=== PATIENT | female | born 1965 | race Two or more races ===

== ENCOUNTER 2022-11-23 19:02 | Emergency (ER) | payer OTHER ==
[~2022-11-23] VITALS: Ht 147.3 cm; Wt 58.1 kg
--- NOTE | 2022-11-23 19:40 | NUR ---
BIBFAMILY C/O FLANK PAIN P/S 9/10 SINCE 11/10/22.PATIENT IS AAOX4. ABLE TO MAKE NEEDS KNOWN. PAIN SCALE IS 9/10. PLACED COMFORTABLY IN BED. VITALS CHECKED.
--- NOTE | 2022-11-23 19:42 | NUR ---
URINE SPECIMEN SENT TO LAB
[2022-11-23] MEDS ORDERED: KETOROLAC TROMETHAMINE 15 MG/ML VIAL ONE (19:57)
[2022-11-23] MEDS ORDERED: ONDANSETRON HCL/PF 4 MG/2 ML VIAL ONE (19:57)
--- NOTE | 2022-11-23 20:02 | NUR ---
PT BROUGHT TO RADIOLOGY DEPT
--- NOTE | 2022-11-23 20:25 | NUR ---
IV CANNULA INSERTED ON LEFT AC. BLOOD DRAWN AND SENT TO LAB
[2022-11-23] MEDS: IV NS 0.9% 1,000 ML BAG IV ONE (20:34)
[2022-11-23] MEDS: KETOROLAC TROMETHAMINE INJ 30 MG/ML VIAL IV ONE (20:35)
[2022-11-23] MEDS: ONDANSETRON HCL/PF 4 MG/2 ML VIAL IV ONE (20:35)
[2022-11-23 20:41] LABS: BILIRUBIN,URINE NEGATIVE (NEGATIVE); COLOR,URINE YELLOW (YELLOW); LEUKOCYTE ESTERASE ,URINE TRACE (NEGATIVE); NITRITE, URINE NEGATIVE (NEGATIVE); PROTEIN,URINE NEGATIVE (NEGATIVE); UGLUCOSE NEGATIVE (NEGATIVE); UROBILINOGEN,URINE 0.2 EU/dL (0.2)
[2022-11-23 20:54] LABS: BASOPHILS % (AUTO) 0.4 % (0.0-2.0); EOSINOPHILS % (AUTO) 0.8 % (0.0-6.0); HEMATOCRIT 40 % (33-45); HEMOGLOBIN 12.9 g/dL (11.5-14.8); LYMPHOCYTES % (AUTO) 34.2 % (20.0-44.0); MEAN CORPUSCULAR HGB CONC 32 g/dl (31.0-36.0); MEAN CORPUSCULAR VOLUME 83 fL (82-100); MONOCYTES # (AUTO) 0.7 K/uL (0.1-1.30); MONOCYTES % (AUTO) 5.8 % (2.0-12.0); NEUTROPHILS # (AUTO) 6.8 K/uL (1.8-8.9); NEUTROPHILS % (AUTO) 58.8 % (43.0-81.0); PLATELET COUNT (AUTO) 293 K/uL (150-450); RED BLOOD CELL COUNT(AUTO) 4.82 MIL/uL (4.0-5.2); WHITE BLOOD COUNT (AUTO) 11.6 K/uL (4.3-11.0)
[2022-11-23 21:09] LABS: ALBUMIN 3.7 g/dL (3.4-5.0); BILIRUBIN,DIRECT 0.1 mg/dL (0.0-0.2); BILIRUBIN,TOTAL 0.2 mg/dL (0.2-1.0); CALCIUM, SERUM 8.7 mg/dL (8.5-10.1); CREATININE 0.8 mg/dL (0.6-1.3); POTASSIUM 3.9 mmol/L (3.5-5.1); TOTAL PROTEIN, SERUM 7.2 g/dL (6.4-8.2)
[2022-11-23 21:13] LABS: BACTERIA,URINE None seen /HPF (None Seen); RBC,URINE 0-2 /HPF (0-2); WBC,URINE 0-2 /HPF (0-3)
--- NOTE | 2022-11-23 21:26 | NUR ---
UPDATE GIVEN TO DAUGHTER CARMELITA
[2022-11-23] MEDS ORDERED: CYCLOBENZAPRINE 10 MG TABLET ONE (21:28)
[2022-11-23] MEDS: CYCLOBENZAPRINE 10 MG TABLET PO ONE (21:31)
[2022-11-23] MEDS ORDERED: NAPR-1164 PO (21:48)
[2022-11-23] MEDS ORDERED: LIDO30AD10 TP (21:48)
[2022-11-23] MEDS ORDERED: CYCL5TAB PO (21:48)
--- NOTE | 2022-11-23 22:09 | NUR ---
IV CANNULA REMOVED
--- NOTE | 2022-11-23 22:10 | NUR ---
Patient discharged to home in stable condition. Written and verbal after care instructions given. Patient verbalizes understanding of instruction.
[2022-11-23 22:34] VITALS: BP 182/75
== END 2022-11-23 22:35 | disposition home or self-care (01) ==
LOC: ER 19:06
DX: S33.5XXA Sprain of ligaments of lumbar spine, initial encounter (principal); R10.9 Unspecified abdominal pain; I10 Essential (primary) hypertension; E11.9 Type 2 diabetes mellitus without complications; Z79.899 Other long term (current) drug therapy; X58.XXXA Exposure to other specified factors, initial encounter; Y93.89 Activity, other specified; Y92.89 Other specified places as the place of occurrence of the external cause; Y99.8 Other external cause status
CPT/HCPCS: 99284; 74176; 96374; 96375; 85025; 80048; 83690; 80076; 81001; 36415; J2405; J1885